=== PATIENT | female | born 2000 | race Caucasian/White ===

== ENCOUNTER 2021-07-01 13:58 | Emergency (ER) | payer OTHER, SELFPAY ==
[2021-07-01 14:22] VITALS: BP 118/79; PULSE 79; RESP 16; TEMP 36.9; O2SAT 98; BMI 19.8
--- NOTE | 2021-07-01 14:41 | DI.US.S_ITS ---
PROCEDURE: US PELVIC COMPLETE INDICATIONS: RLQ pain TECHNIQUE: Real-time scanning was performed of the pelvic organs, with image documentation. Additional endovaginal scanning was necessary due to incomplete visualization of the adnexal and endometrial structures by transabdominal scanning. COMPARISON: None. FINDINGS: Uterus: Uterus is anteverted and normal in size at 8.5 x 3.9 x 5.8 cm. The myometrium is homogeneous. The endometrium measures 8.6 mm combined thickness. Ovaries: The right ovary measures 3.8 x 2.5 x 3.3 cm. The left ovary measures 2.7 x 1.6 x 1.9 cm. The ovaries have a normal sonographic appearance. Less than 12 follicles can be seen in each ovary. No adnexal masses are seen. Both ovaries have appropriate vascularity without torsion Other: Mild free fluid noted in the pelvis. IMPRESSION: Mild nonspecific free fluid in the pelvis. Otherwise unremarkable ultrasound of the pelvis. Approved by: Yusuf Hernandez M.D. on 07/01/2021 at 17:08
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
[2021-07-01 18:53] VITALS: BP 110/59; PULSE 76; RESP 16; O2SAT 97
== END 2021-07-01 18:53 | disposition home or self-care (01) ==
PROVIDERS: Emergency Provider Physician Assistant
DX: R10.2 Pelvic and perineal pain (principal); N94.10 Unspecified dyspareunia
CPT/HCPCS: 76830; 76856; 99283

== ENCOUNTER → 2024-02-14 10:07 | Outpatient (CLI) | payer OTHER, SELFPAY ==
--- NOTE | 2024-02-14 | DI.MRI.S_ITS ---
PROCEDURE: MR CERVICAL SPINE WO CON INDICATIONS: idiopathic scoliosis,cervical region TECHNIQUE: Noncontrast sagittal T1 spin echo and T2 fast spin echo, sagittal STIR, foraminal oblique sagittal T2 fast spin echo, and axial gradient echo or T2 fast spin echo through the cervical spine. COMPARISON: None. FINDINGS: Image quality: Excellent. Alignment and Curvature: Straightening of the cervical lordosis. Otherwise, normal alignment. Bone Marrow: Marrow demonstrates normal overall signal. Spinal Cord: Visualized spinal cord has normal size and signal. No cerebellar tonsillar herniation. Paraspinous Soft Tissues: No paravertebral masses. Prevertebral soft tissues are normal in thickness. C2-C3: Normal appearance. C3-C4: Normal appearance. C4-C5: Normal appearance. C5-C6: Normal appearance. C6-C7: Normal appearance. C7-T1: Normal appearance. IMPRESSION: No acute MRI abnormality of the cervical spine. Dictated by: Jurgen Clark M.D. on 02/16/2024 at 9:26 Approved by: Jurgen Clark M.D. on 02/16/2024 at 9:40
--- NOTE | 2024-02-14 | DI.MRI.S_ITS ---
PROCEDURE: MR LUMBAR SPINE WO CON INDICATIONS: idiopathic scoliosis,cervical region TECHNIQUE: Noncontrast sagittal T1 spin echo and T2 fast echo, sagittal STIR, and T2 fast spin echo through the lumbar spine. In cases with scoliosis, additional coronal T2 fast spin echo may be performed. COMPARISON: [facility] [place], CR, XR LUMBAR SPINE 2 OR 3 VIEWS, 08/27/2023, 10:05. FINDINGS: Image quality: Excellent. Alignment and Curvature: The lumbar lordosis is preserved. There is dextrocurvature of the lumbar spine with the apex at L2. Bone Marrow: Marrow is of normal overall signal. No acute vertebral body compression fractures. Spinal Cord: Conus medullaris terminates at the T12-L1 level. Visualized cord demonstrates normal signal and size. Paraspinous Soft Tissues: No paravertebral masses. T12-L1: Normal appearance. L1-L2: Normal appearance. L2-L3: Normal appearance. L3-L4: Normal appearance. L4-L5: Normal appearance. L5-S1: Normal appearance. IMPRESSION: Mild dextrocurvature of the lumbar spine with the apex at L2. Otherwise, no acute MRI abnormality of the lumbar spine. Dictated by: Jurgen Clark M.D. on 02/16/2024 at 9:40 Approved by: Jurgen Clark M.D. on 02/16/2024 at 9:46
== END ==
LOC: MRI 10:08
PROVIDERS: PCP Internal Medicine; Referring Provider Physical Medicine & Rehabilitation; Visit Provider Physical Medicine & Rehabilitation
DX: M41.42 Neuromuscular scoliosis, cervical region (principal); M41.26 Other idiopathic scoliosis, lumbar region
CPT/HCPCS: 72141; 72148